=== PATIENT | male | born 1980 | race African-American/Black ===

== ENCOUNTER 2023-08-13 10:15 | Outpatient (CLI) | payer BC, SELFPAY ==
--- NOTE | ~2023-08-13 | CT_ITS ---
EXAMINATION: CTA chest PE protocol DATE: 08/13/2023 10:46 INDICATION: Lung nodule. Congenital malformation of peripheral vascular system. TECHNIQUE: Computed tomography angiography (CTA) of the chest was performed with 100 mL Omnipaque-350 intravenous contrast timed to evaluate the pulmonary arteries. Coronal maximum intensity projection 3D-reconstructions were created by the technologist. Automated exposure control and iterative reconst ruction technique were employed. The dose-length product was 421.83 mGy-cm. COMPARISON: None. FINDINGS: The lungs demonstrate mild atelectasis. Calcified left lower lobe nodules are consistent wi th old granulomatous disease. There are noncalcified nodules in left lower lobe measuring up to 4 mm, likely benign. No pleural effusion. The heart size is normal. No pericardial effusion. There is no p ulmonary embolus. There is mild thoracic spondylosis. IMPRESSION: 1. No pulmonary embolus. 2. Small nodules in left lung lower lobe, likely benign. Reviewed, dictated and finalized at location [facility]
== END 2023-08-13 10:16 ==
LOC: MICIMG 10:17
PROVIDERS: PCP Physician Assistant; Visit Provider Physician Assistant
DX: R91.1 Solitary pulmonary nodule (principal); Q27.9 Congenital malformation of peripheral vascular system, unspecified; R91.8 Other nonspecific abnormal finding of lung field
CPT/HCPCS: 71275; Q9967

== ENCOUNTER → 2024-08-25 16:11 | Emergency (ER) | payer BC, SELFPAY ==
[2024-08-25 16:36] VITALS: BP 120/82; PULSE 88; RESP 18; TEMP 36.6; O2SAT 99
--- NOTE | 2024-08-25 17:07 | PC.NURSE ---
[id number]- Pt and spouse came by nursing station as they were leaving and stated they were concerned about his blood pressure earlier. But his BP was fine when taken here. They have decided they just want to f/u with his PCP provider as he is not having any sx at this time. Pt LWBS. I did not see this pt or perform any assessments.
== END | disposition left against medical advice (07) ==
PROVIDERS: Emergency Provider Nurse Practitioner Family; PCP Internal Medicine
DX: Z53.21 Procedure and treatment not carried out due to patient leaving prior to being seen by health care provider (principal)
CPT/HCPCS: 99199

== ENCOUNTER 2025-02-08 03:44 | Day surgery (SDC) | payer OTHER, SELFPAY ==
[2025-01-31 08:28] VITALS: BMI 25.7
[2025-02-08 07:16] VITALS: BP 121/78; PULSE 81; RESP 16; TEMP 36.7; O2SAT 100
[2025-02-08] MEDS: LACTATED RINGERS 1,000 ML 150 ML IV CONT (07:25)
--- NOTE | 2025-02-08 07:51 | P.PNAN_ITS ---
Anes - Initial Pre Proc Eval Procedure: Operation Date: 02/08/25 08:30 Proposed Procedures p Screening Colonoscopy - James Fairbanks DO Date/Time: 02/08/25 07:51 Surgeon: James Fairbanks DO Pre Op Diagnosis: Screening for malignant neoplasm of colon Patient Data Age: 45 Gender: M Height: 1.8 m Weight: 82.5 kg Last Vital Signs Temp 98.1 F 02/08/25 07:16 Pulse 81 02/08/25 07:16 Resp 16 02/08/25 07:16 BP 121/78 02/08/25 07:16 Pulse Ox 100 02/08/25 07:16 O2 Del Method Room Air 02/08/25 07:16 Allergies Allergy/AdvReac Type Severity Reaction Status Date / Time shellfish derived Allergy Intermediate tightness Verified 02/08/25 07:13 in chest, hives Home Medications ?Medication ?Instructions ?Recorded ?Confirmed ?Type cetirizine 10 mg tablet (Zyrtec) 10 mg PO DAILY 08/09/19 01/31/25 History multivitamin (Multiple Vitamins 1 tablet PO DAILY 08/09/19 02/08/25 History tablet) albuterol sulfate 90 mcg/actuation 2 puff inhalation Q4-6H PRN 01/26/25 02/08/25 Rx aerosol inhaler (ProAir HFA) shortness of breath or wheezing #8.5 grams Patient hx anesthesia problems: none Family hx anesthesia problems: none Results Review: All pre-operative results and documents have been reviewed as part of the pre- operative evaluation. [facility] Family History Family History Mother Patient's mother is in good health Father Patient's father is in good health Sibling No problems noted. 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 Asthma uses inhalers periodically but stable of recent. Informed Consent: The patient's anesthetic plan and its attendant risks and benefits were disc ussed with the patient/family/POA. Questions were solicited and answers provided to the satisfaction of the patient/family/POA.
--- NOTE | 2025-02-08 07:57 | P.HP_ITS ---
H&P: HPI History of Present Illness Date/Time: 02/08/25 07:57 Chief Complaint: Screening for colorectal cancer Narrative: This is a 45-year-old man who presents for his 1st colonoscopy. He denies any hematochezia or melena. He thinks he has a grand parent that had colon cancer but denies any first-degree relatives. Review of Systems Review of Systems: All systems reviewed & are unremarkable except as noted in HPI and below Constitutional: Constitutional: Denies chills, Denies fever(s), Denies headache(s) and Denies weight loss Eyes: Eyes: Denies change in vision ENT: Denies dizziness, Denies headache(s), Denies neck mass and Denies throat swelling Cardiovascular: Cardiovascular: Denies chest pain, Denies lightheadedness and Denies dyspnea Respiratory: Respiratory: Denies cough, Denies dyspnea and Denies wheezing Gastrointestinal: Gastrointestinal: Denies abdominal pain, Denies change in bowel habits, Denies nausea and Denies vomiting Genitourinary: Genitourinary: Denies hematuria and Denies dysuria Musculoskeletal: Musculoskeletal: Reports as per HPI Integumentary/Breasts: Skin/Breast: Reports as per HPI Neurologic: Denies dizziness and Denies headache(s) Allergic/Immunologic: Allergic/Immunologic: Denies throat swelling and Denies wheezing [facility] Family History Family History Mother Patient's mother is in good health Father Patient's father is in good health Sibling No problems noted. 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 Gender identity (if verbalized by the patient): Male Meds Home Medications and Allergies Home Medications ?Medication ?Instructions ?Recorded ?Confirmed ?Type cetirizine 10 mg tablet (Zyrtec) 10 mg PO DAILY 08/09/19 01/31/25 History multivitamin (Multiple Vitamins 1 tablet PO DAILY 08/09/19 02/08/25 History tablet) albuterol sulfate 90 mcg/actuation 2 puff inhalation Q4-6H PRN 01/26/25 02/08/25 Rx aerosol inhaler (ProAir HFA) shortness of breath or wheezing #8.5 grams Allergies Allergy/AdvReac Type Severity Reaction Status Date / Time shellfish derived Allergy Intermediate tightness Verified 02/08/25 07:13 in chest, hives Vital Signs Vital Signs - 24 hr 02/08/25 07:16 Temperature 98.1 F Pulse Rate 81 Respiratory Rate 16 Blood Pressure 121/78 Pulse Oximetry 100 Oxygen Delivery Room Air Exam Const: General: no acute distress and alert Orientation/consciousness: patient oriented x3 HENMT: Head: normocephalic and atraumatic Ears: hearing grossly normal bilaterally Face/Nose/Sinus: Normal nares present Mouth: Yes Normal oral and palatal mucosa present Eyes: Periorbital: periorbital findings normal Sclera: sclerae normal EOM: EOMs intact bilaterally Neck: Neck: normal visual inspection, no lymphadenopathy and trachea midline Chest: Chest palpation & inspection: normal inspection of the chest Resp: Effort & Inspection: normal respiratory effort Auscultation: clear to auscultation bilaterally Cardio: Jugular venous distension: no JVD Rate: regular rate Rhythm: regular rhythm Heart sounds: S1 normal heart sound present and S2 normal heart sound present Peripheral pulses: Peripheral pulses 2+ throughout GI: Inspection: normal to inspection GI Palp: Yes Soft to palpation, No Tenderness to palpation present (GI), No Guarding due to palpation present (GI) and No Rebound tenderness present Percussion: Yes normal to percussion Auscultation: normal bowel sounds : General: Yes no CVA tenderness Back/Spine/Pelvis: Back: no CVA tenderness Neuro: General: patient oriented x3, no focal motor deficits and CN's II-XI intact bilaterally Cognition (Neuro): normal cognition Speech: normal speech Motor exam (neuro): 5/5 motor strength present throughout Extrem: General: capillary refill normal and no clubbing, cyanosis or edema Assessment and Plan Assessment and plan (1) Screening for colon cancer: Code(s): Z12.11 - Encounter for screening for malignant neoplasm of colon Status: Acute Assessment and Plan: I have recommended colonoscopy. I have discussed the procedure, risks, benefits, and alternatives. Questions were answered. Patient is agreeable to proceed.
[2025-02-08 08:20] VITALS: BP 108/76; PULSE 72; RESP 20; O2SAT 99
[2025-02-08 08:30] VITALS: BP 117/80; PULSE 70; RESP 20; O2SAT 99
[2025-02-08 08:40] VITALS: BP 119/75; PULSE 71; RESP 15; O2SAT 99
== END 2025-02-08 09:00 | disposition home or self-care (01) ==
PROVIDERS: PCP Nurse Practitioner; Visit Provider Surgery
PROC: 0DJD8ZZ Inspection of Lower Intestinal Tract, Via Natural or Artificial Opening Endoscopic (ICD-10-PCS; CPT 45378; principal; 2025-02-08 08:30)
DX: Z12.11 Encounter for screening for malignant neoplasm of colon (principal); K57.30 Diverticulosis of large intestine without perforation or abscess without bleeding
CPT/HCPCS: 45378; J2003; J2704; J7120